=== PATIENT | female | born 1970 | race Caucasian/White ===

== ENCOUNTER → 2018-10-02 | Outpatient (CLI) | payer OTHER ==
--- NOTE | 2018-10-02 11:37 | KCIC ---
MR of the right wrist HISTORY: Right wrist pain. Possible scaphoid fracture. Patient fell x2. TECHNIQUE: Routine multiplanar sequences are obtained. FINDINGS: The patient was in a cast, slightly limiting detail. No evidence of triangular fibrocartilage tear. Mild fluid in the extensor carpi ulnaris tendon sheath. There is an interstitial tear within the tendon at the level of the distal ulna. Carpal bones. Other extensor compartments appear intact. Flexor tendons are intact. Median nerve unremarkable. No evidence of scapholunate or lunotriquetral ligament tear. Carpal bone alignment is satisfactory. No acute fracture or aggressive bone destruction. Scaphoid bone is intact. Mild cystic change within the carpi, particularly the capitate. Small effusions within distal radioulnar, midcarpal, and radiocarpal joints. IMPRESSION: 1. Interstitial linear tear of the extensor carpi ulnaris tendon with mild tendon sheath fluid. 2. No other internal derangement is seen. Electronically signed by: Neto Tafoya MD (10/02/2018 11:34 AM) [id number]
== END | disposition home or self-care (01) ==
LOC: KCIC MRI 09:18
PROVIDERS: ATTEND Orthopaedic Surgery
DX: S66.811A Strain of other specified muscles, fascia and tendons at wrist and hand level, right hand, initial encounter (principal); M25.431 Effusion, right wrist; M85.68 Other cyst of bone, other site; X58.XXXA Exposure to other specified factors, initial encounter; Y93.89 Activity, other specified; Y92.89 Other specified places as the place of occurrence of the external cause; Y99.8 Other external cause status
CPT/HCPCS: 73221